=== PATIENT | male | born 1980 | race African-American/Black ===

== ENCOUNTER 2016-10-19 11:00 | Emergency (ER) | payer SELFPAY ==
[~2016-10-19] VITALS: Ht 180.3 cm; Wt 80.0 kg
[~2016-10-19 11:00] MED LIST: AMOX500T PO
[2016-10-19 11:02] VITALS: BP 141/85; PULSE 87; RESP 12; TEMP 98.5; O2SAT 97
--- NOTE | 2016-10-19 11:20 | PD ---
HPI Chief Complaint: Cold / Flu Symptoms Time Seen by Provider: 11:18 Travel History International Travel<30 days: No Contact w/Intl Traveler<30days: No Traveled to known affect area: No History of Present Illness HPI 36-year-old male presents to the emergency department for evaluation of headache , ear pain and sore throat for 3 days. Patient states he has also had some body aches and subjective fevers. Denies hearing loss, lightheadedness, nausea , vomiting, abdominal pain, chest pain, shortness of breath, cough. Patient does smoke cigarettes. Denies any recent travel. Has had positive sick contacts with similar symptoms. Denies any medical conditions. No other complaints. PFSH Past Medical History Diminished Hearing: Yes ([place] BILAT) Musculoskeletal: Yes (DDD) Immunizations Current: Yes Ulcer: Yes Past Surgical History Genitourinary Surgery: Yes (CIRCUMCISION) Other Surgery: Yes (RIGHT HAND) Social History Alcohol Use: Yes (6-7 BEERS PER DAY) Tobacco Use: Yes (1 PPD) Substance Use: Yes (MARIJUANA) Allergies-Medications (Allergen,Severity, Reaction): Coded Allergies: No Known Allergies (Verified , 10/19/16) Reported Meds & Prescriptions Reported Meds & Active Scripts Active Reported Amoxicillin 500 Mg Tab 500 Mg PO TID Review of Systems Except as stated in HPI: all other systems reviewed are Neg Physical Exam Narrative GENERAL: Well-nourished and well-developed pleasant male patient in no acute distress who is nontoxic appearing. SKIN: Warm and dry. HEAD: Normocephalic and atraumatic. EYES: No injection, drainage, or hyphema noted. PERRLA. EOMI. ENT: No nasal drainage noted. Oropharynx is clear and the TMs are normal with good landmarks. NECK: Supple and the trachea is midline. No lymphadenopathy is noted throughout the cervical chains. CARDIOVASCULAR: Regular rate and rhythm. RESPIRATORY: Breath sounds are equal bilaterally with no accessory muscle use, wheezing, rhonchi, or crackles. GASTROINTESTINAL: Abdomen is soft, non-tender, and nondistended. MUSCULOSKELETAL: No obvious deformities, swelling, cyanosis, or ecchymosis is present throughout the upper and lower extremities. Patient has full range of motion without any signs of neurovascular compromise. NEUROLOGICAL: Awake, alert, and oriented. Normal speech and gait. Cranial nerves are grossly intact. Data Data Last Documented VS Vital Signs Date Time Temp Pulse Resp B/P Pulse Ox O2 Delivery O2 Flow Rate FiO2 10/19/16 11:02 98.5 87 12 141/85 97 Room Air MDM Medical Decision Making Medical Screen Exam Complete: Yes Emergency Medical Condition: Yes Differential Diagnosis URI versus viral illness versus influenza versus sinusitis Narrative Course 36-year-old male presents to the emergency department for evaluation of headache , ear pain and sore throat for 3 days. Patient is afebrile, vital signs are stable. Physical examination is unremarkable. Patient appears well overall. This is consistent with a viral URI. Discussed supportive care and when to return to the emergency department. Patient verbalizes understanding and agreement with treatment plan. Diagnosis Primary Impression: Upper respiratory infection Qualified Code: J06.9 - Viral upper respiratory tract infection Referrals: Primary Care Physician Patient Instructions: General Instructions, Upper Respiratory Infection (ED) Departure Forms: Tests/Procedures, Work Release Enter return to work date: Oct 21, 2016 Additional Instructions: Rest. Drink plenty of fluids. Follow-up with your Primary Care Physician. Return to the ED for any acute worsening of symptoms. Med/Other Pt SpecificInfo: No Change to Meds Disposition: 01 DISCHARGE HOME Condition: Stable Shea Hughes Oct 19, 2016 11:19
[2016-10-19] MEDS ORDERED: AMOX500T PO (11:49)
== END 2016-10-19 11:53 | disposition home or self-care (01) ==
LOC: NEPB 11:00
DX: J06.9 Acute upper respiratory infection, unspecified (principal); F17.210 Nicotine dependence, cigarettes, uncomplicated
CPT/HCPCS: 99283

== ENCOUNTER 2016-11-24 15:11 | Emergency (ER) | payer SELFPAY ==
[2016-11-24 15:12] VITALS: BP 131/78; PULSE 81; RESP 14; TEMP 98.1; O2SAT 95
--- NOTE | 2016-11-24 16:38 | PD ---
HPI Chief Complaint: Hip Injury Time Seen by Provider: 16:38 Travel History International Travel<30 days: No Contact w/Intl Traveler<30days: No Traveled to known affect area: No History of Present Illness HPI 36-year-old male presents to the emergency Department with complaint of left hip pain for the last few days. He does not recall any injury. He notes he doesn't fall. Denies heavy lifting or straining. Has never had pain like this before. Pain is worse with certain movements of his left leg, walking and palpation. Denies paresthesias, loss of sensation, decreased range of motion, decreased strength to the affected extremity. Denies low back pain. Denies fever, chills, nausea, vomiting. Has not taken any medications or tried any treatments to alleviate his symptoms. No known allergies. Denies significant past medical history. No other modifying factors or associated signs and symptoms. PFSH Past Medical History Diminished Hearing: Yes ([place] BILAT) Musculoskeletal: Yes (DDD) Immunizations Current: Yes Ulcer: Yes Past Surgical History Genitourinary Surgery: Yes (CIRCUMCISION) Other Surgery: Yes (RIGHT HAND) Social History Alcohol Use: Yes (6-7 BEERS PER DAY) Tobacco Use: Yes (1 PPD) Substance Use: Yes (MARIJUANA) Allergies-Medications (Allergen,Severity, Reaction): Coded Allergies: No Known Allergies (Verified , 11/24/16) Reported Meds & Prescriptions Reported Meds & Active Scripts Active Ibuprofen 800 Mg Tab 800 Mg PO Q6HR PRN Reported Amoxicillin 500 Mg Tab 500 Mg PO TID Review of Systems Except as stated in HPI: all other systems reviewed are Neg Physical Exam Narrative GENERAL: Well-nourished, well-developed [place] male patient, in no acute distress SKIN: Warm and dry. HEAD: Atraumatic. Normocephalic. EYES: Pupils equal and round. No scleral icterus. No injection or drainage. ENT: Mucosa pink and moist. Airway patent. NECK: Trachea midline. CARDIOVASCULAR: Regular rate. RESPIRATORY: No accessory muscle use. GASTROINTESTINAL: Flat. MUSCULOSKELETAL: Left hip with full range of motion; no erythema, edema, ecchymosis; With tenderness on abduction; tenderness on palpation to the left lateral hip; no obvious deformity; no leg length discrepancy. Left lower extremity is supple and non-tense with 2+ pedal pulse and sensory intact and without erythema or edema. NEUROLOGICAL: Awake and alert. Oriented 3. No obvious cranial nerve deficits. Motor grossly within normal limits. Normal speech. PSYCHIATRIC: Appropriate mood and affect; insight and judgment normal. Data Data Last Documented VS Vital Signs Date Time Temp Pulse Resp B/P Pulse Ox O2 Delivery O2 Flow Rate FiO2 11/24/16 16:49 80 18 98 Room Air 11/24/16 15:12 98.1 131/78 Orders Ibuprofen (Motrin) (11/24/16 16:45) Hip, Uni(Ap&Lat) W Ap Pelvis (11/24/16 16:38) MDM Medical Decision Making Medical Screen Exam Complete: Yes Emergency Medical Condition: Yes Medical Record Reviewed: Yes Differential Diagnosis Arthritis, hip fracture, dislocation, hip pain Narrative Course 36-year-old male with left hip pain. Unknown injury. Left hip is with tenderness with abduction. Ibuprofen ordered. Left hip with AP pelvis x-ray ordered. 1740: Left hip with AP pelvis x-ray with no acute findings. Crutches provided for support. Instructed patient to follow up with orthopedic as needed. Ibuprofen prescribed for home. Patient is medically cleared and stable for discharge. Discussed reasons to return to the emergency department. Instructed patient to follow up with primary care provider. Patient agrees with treatment plan. The patients vital signs are stable and the patient is stable for outpatient follow-up and treatment. Patient discharged home, stable and in no acute distress. Diagnosis Primary Impression: Left hip pain Referrals: Orthopedist Primary Care Physician Patient Instructions: Crutch Instructions (ED), General Instructions, Hip Pain (ED) Departure Forms: Tests/Procedures, Work Release Enter return to work date: Nov 27, 2016 Additional Instructions: Ibuprofen or Tylenol as directed and as needed for pain and inflammation Avoid aggravating activity; increased activity as tolerated Follow-up with primary care provider Follow-up with orthopedic as needed Return to the emergency department immediately with worsening of symptoms Med/Other Pt SpecificInfo: Prescription(s) given Scripts Ibuprofen 800 Mg [id number] Mg PO Q6HR PRN (PAIN) #30 TAB Ref 0 Prov:Shea Contreras 11/24/16 Disposition: 01 DISCHARGE HOME Condition: Stable Shea Contreras Nov 24, 2016 16:38
[2016-11-24] MEDS ORDERED: IBUPROFEN 800 MG TAB PO ONE (16:45)
--- NOTE | 2016-11-24 17:26 | RADRPT ---
EXAM DATE/TIME: 11/24/2016 17:05 [facility] COMPARISON: No previous studies available for comparison. INDICATIONS : Left hip pain, no known injury. MEDICAL HISTORY : None. SURGICAL HISTORY : None. ENCOUNTER: Initial ACUITY: 3 days PAIN SCORE: 5/10 LOCATION: Left hip. FINDINGS: Examination of the left hip was performed with AP Pelvis. The primary and secondary trabecular patte rn of the femoral neck is intact. The hip joint is of normal width without significant sclerosis or bony hypertrophy. The acetabulum is grossly intact. CONCLUSION: Unremarkable exam. Favian Del Real MD on November 24, 2016 at 17:24 Board Certified Radiologist. This report was verified electronically.
[2016-11-24] MEDS ORDERED: IBUP800T23 PO (17:42)
== END 2016-11-24 18:30 | disposition home or self-care (01) ==
LOC: NEPB 15:11
DX: M25.552 Pain in left hip (principal); F17.210 Nicotine dependence, cigarettes, uncomplicated
CPT/HCPCS: 73502; 99283; E0113

== ENCOUNTER 2017-06-30 09:17 | Emergency (ER) | payer SELFPAY ==
[~2017-06-30] VITALS: Ht 177.8 cm; Wt 86.3 kg
[~2017-06-30 09:17] MED LIST changes: +IBUP800T23 PO
[2017-06-30 09:19] VITALS: BP 129/70; PULSE 77; RESP 24; TEMP 98.6; O2SAT 96
[2017-06-30] MEDS ORDERED: MELO7.5T4 PO (09:34)
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
[2017-06-30] MEDS ORDERED: methylPREDNISolone SOD SUCC 125 MG/2 ML VIAL IM ONE (09:45)
== END 2017-06-30 10:17 | disposition home or self-care (01) ==
LOC: NEPD 09:17
DX: S39.012A Strain of muscle, fascia and tendon of lower back, initial encounter (principal); X50.9XXA Other and unspecified overexertion or strenuous movements or postures, initial encounter; X37.0XXA Hurricane, initial encounter; Y93.H2 Activity, gardening and landscaping
CPT/HCPCS: 96372; 99284; J2930

== ENCOUNTER 2017-07-14 08:17 | Emergency (ER) | payer SELFPAY ==
[~2017-07-14] VITALS: Ht 180.3 cm; Wt 90.0 kg
[~2017-07-14 08:17] MED LIST changes: -AMOX500T PO; -IBUP800T23 PO; +MELO7.5T4 PO
[2017-07-14 08:18] VITALS: BP 121/80; PULSE 75; RESP 16; TEMP 98.1; O2SAT 97
--- NOTE | 2017-07-14 08:42 | PD ---
HPI Chief Complaint: Medical Clearance Time Seen by Provider: 08:42 Travel History International Travel<30 days: No Contact w/Intl Traveler<30days: No Traveled to known affect area: No History of Present Illness HPI 37-year-old male presents to the emergency Department with complaint of discharge from his penis and the inside of his penis feeling itchy since yesterday. Denies testicular pain, swelling. Denies penile pain. Denies dysuria, urinary frequency. Denies fever, vomiting, abdominal pain. Reports being monogamous with his girlfriend. Says his girlfriend was seen here a few weeks ago and she told him she had a bacterial infection. Otherwise denies known exposure to STD, STI. Has not taken any medications or tried any treatments to alleviate his symptoms. No known allergies. Symptoms are mild in severity. Has no other medical complaints. No other modifying factors or associated signs and symptoms. PFSH Past Medical History Diminished Hearing: Yes ([place] BILAT) Musculoskeletal: Yes (DDD) Immunizations Current: Yes Ulcer: Yes (peptic) Past Surgical History Genitourinary Surgery: Yes (CIRCUMCISION) Other Surgery: Yes (RIGHT HAND) Social History Alcohol Use: Yes (6-7 BEERS PER DAY) Tobacco Use: Yes (1 PPD) Substance Use: Yes (MARIJUANA on occasion) Allergies-Medications (Allergen,Severity, Reaction): Coded Allergies: No Known Allergies (Verified , 07/14/17) Reported Meds & Prescriptions Reported Meds & Active Scripts Active No Active Prescriptions or Reported Medications Review of Systems Except as stated in HPI: all other systems reviewed are Neg Physical Exam Narrative GENERAL: Well-nourished, well-developed black male patient, in no acute distress ; afebrile, nontoxic-appearing SKIN: Warm and dry. HEAD: Atraumatic. Normocephalic. EYES: Pupils equal and round. ENT: Mucosa pink and moist. NECK: Trachea midline. No lymphadenopathy. CARDIOVASCULAR: Regular rate. RESPIRATORY: No accessory muscle use. GASTROINTESTINAL: Abdomen soft and nondisteneded; nontender. Hepatic and splenic margins not palpable. Bowel sounds are active 4 quadrants. GENITOURINARY: Exam done in the presence of a nurse. Circumcised. Testes descended bilaterally without evidence of rotation. No lesions or erythema. Milky white urethral discharge. MUSCULOSKELETAL: No obvious deformities. No clubbing. No cyanosis. No edema. BACK: No CVA tenderness. NEUROLOGICAL: Awake and alert. Oriented 3. No obvious cranial nerve deficits. Motor grossly within normal limits. Normal speech. Moves all extremities. 5/5 strength to all extremities. PSYCHIATRIC: Appropriate mood and affect; insight and judgment normal. Data Data Last Documented VS Vital Signs Date Time Temp Pulse Resp B/P (MAP) Pulse Ox O2 Delivery O2 Flow Rate FiO2 07/14/17 08:18 98.1 75 16 121/80 (94) 97 Room Air Orders Orders Azithromycin Powd Pack (Zithromax Powd P (07/14/17 08:45) Ceftriaxone Inj (Rocephin Inj) (07/14/17 08:45) Lidocaine 1% Inj (50 Ml) (Xylocaine 1% I (07/14/17 08:45) Metronidazole (Flagyl) (07/14/17 08:45) Gc And Chlamydia Pcr (07/14/17 08:51) MDM Medical Decision Making Medical Screen Exam Complete: Yes Emergency Medical Condition: Yes Medical Record Reviewed: Yes Differential Diagnosis Trichomonas, Chlamydia, gonorrhea, urethritis Narrative Course 37-year-old male physical exam consistent with urethritis. Patient is afebrile and nontoxic-appearing. Denies fever, vomiting. I will treat the patient empirically with azithromycin, Rocephin, and Flagyl. Instructed patient to follow up with the [facility] Department or [facility] clinic for further STD screening. Instructed patient to follow up with primary care provider. Patient verbalizes understanding and agreement with treatment plan. Patient is medically cleared and stable for discharge. Discussed reasons to return to the emergency department. Patient agrees with treatment plan. The patients vital signs are stable and the patient is stable for outpatient follow- up and treatment. Patient discharged home, stable and in no acute distress. Diagnosis Primary Impression: Urethritis Referrals: [facility] Primary Care Physician [facility] Dept. Patient Instructions: Chlamydia (ED), General Instructions, Gonorrhea (ED), Nonspecific Urethritis in Men (ED), Trichomoniasis (ED) Additional Instructions: Avoid sexual activity until after you and sexual partner/s have been treated; wait 14 days to resume sexual intercourse Inform all sexual partners within the past 3-6 months that they need to be evaluated and treated Use condoms every time you have sex Follow-up with primary care provider Follow-up with [facility] Follow-up with [facility] Return to the emergency department immediately with worsening of symptoms Med/Other Pt SpecificInfo: No Meds Exist/No RX given Scripts No Active Prescriptions or Reported Meds Disposition: 01 DISCHARGE HOME Condition: Stable Shea Contreras Jul 14, 2017 08:42
[2017-07-14] MEDS ORDERED: cefTRIAXone 250 MG VIAL IM ONE (08:45)
[2017-07-14] MEDS ORDERED: LIDOCAINE HCL 1% 50 ML VIAL IM ONE (08:45)
[2017-07-14] MEDS ORDERED: metroNIDAZOLE 500 MG TAB PO ONE (08:45)
[2017-07-14] MEDS ORDERED: AZITHROMYCIN PWD FOR SUSP 1 GM PACKET PO ONE (08:45)
[2017-07-14 12:39] LABS: CHLAMYDIA PCR DETECTED (NOT DETECT); NEISSERIA PCR DETECTED (NOT DETECT)
== END 2017-07-14 09:29 | disposition home or self-care (01) ==
LOC: NEPK 08:17
DX: N34.2 Other urethritis (principal); F17.200 Nicotine dependence, unspecified, uncomplicated
CPT/HCPCS: 87491; 87591; 96372; 99284; J0696

== ENCOUNTER 2017-12-13 13:01 | Emergency (ER) | payer SELFPAY ==
[2017-12-13] MEDS ORDERED: IOHEXOL 350 MG/ML 10 ML VIAL (for RAD DIAG) IVCONTRAST ONE (13:02)
[2017-12-13 13:43] VITALS: BP 119/78; PULSE 78; RESP 14; TEMP 98.3; O2SAT 96
[2017-12-13 16:15] LABS: AUTOMATED NEUTROPHIL # 2.3 TH/MM3 (1.8-7.7); BASOPHIL % 0.5 % (0.0-2.0); EOSINOPHIL # 0.1 TH/MM3 (0-0.4); EOSINOPHIL % 1.4 % (0.0-4.0); HEMATOCRIT 45.7 % (39.0-51.0); LYMPH % 39.6 % (9.0-44.0); MEAN CELL VOLUME 93.7 FL (80.0-100.0); MEAN CORPUSCULAR HEMOGLOBIN 32.8 PG (27.0-34.0); MEAN CORPUSCULAR HGB CONC 34.9 % (32.0-36.0); MONO % 12.3 % (0.0-8.0); MONOCYTE # 0.6 TH/MM3 (0-0.9); NEUT % 46.2 % (16.0-70.0); PLATELET COUNT 206 TH/MM3 (150-450); RED BLOOD COUNT 4.88 MIL/MM3 (4.50-5.90); RED CELL DISTRIBUTION WIDTH 12.1 % (11.6-17.2)
[2017-12-13 16:23] LABS: BILIRUBIN, URINE NEG (NEG); BLOOD, URINE NEG (NEG); GLUCOSE,URINE NEG (NEG); KETONE, URINE TRACE mg/dL (NEG); NITRITE,URINE NEG (NEG); URINE COLOR LIGHT-YELLOW (YELLW/STRAW); URINE LEUKOCYTE ESTERASE NEG (NEG)
[2017-12-13 16:32] LABS: BICARBONATE 23.6 MEQ/L (21.0-32.0); CALCIUM 9.2 MG/DL (8.5-10.1); CREATININE 1.08 MG/DL (0.60-1.30)
--- NOTE | 2017-12-13 18:30 | PD ---
HPI Chief Complaint: GI Complaint Time Seen by Provider: 18:28 Travel History International Travel<30 days: No Contact w/Intl Traveler<30days: No Traveled to known affect area: No PFSH Past Medical History Diminished Hearing: Yes ([place] BILAT) Musculoskeletal: Yes (DDD) Immunizations Current: Yes Ulcer: Yes (peptic) Past Surgical History Genitourinary Surgery: Yes (CIRCUMCISION) Other Surgery: Yes (RIGHT HAND) Social History Alcohol Use: Yes (6-7 BEERS PER DAY) Tobacco Use: Yes (3/ PPD) Substance Use: Yes (MARIJUANA on occasion) Allergies-Medications (Allergen,Severity, Reaction): Coded Allergies: No Known Allergies (Verified Allergy, Unknown, 12/13/17) Reported Meds & Prescriptions Reported Meds & Active Scripts Active Metamucil Original Texture (Psyllium Hydrophilic Mucilloid) 3.4 Gram/7 Gram Pow 1 Scoop PO TID PRN 30 Days 1 rounded TEASPOON in 8 oz of liquid at the first sign of irregularity. Data Data Last Documented VS Vital Signs Date Time Temp Pulse Resp B/P (MAP) Pulse Ox O2 Delivery O2 Flow Rate FiO2 12/13/17 13:43 98.3 78 14 119/78 (92) 96 Orders Orders Complete Blood Count With Diff (12/13/17 13:45) Basic Metabolic Panel (Bmp) (12/13/17 13:45) Urinalysis - C+S If Indicated (12/13/17 13:45) Iv Access Insert/Monitor (12/13/17 18:47) Ecg Monitoring (12/13/17 18:47) Oximetry (12/13/17 18:47) Sodium Chloride 0.9% Flush (Ns Flush) (12/13/17 19:00) Fleets Enema (Adult) (Fleets Enema (Adul (12/13/17 19:00) Ct Pelvis W Iv Contrast(Rout) (12/13/17 ) Oral Contrast - Adult (12/13/17 18:54) Diatrizoate Liq ( Gastroview Liq) (12/13/17 20:00) Iohexol 350 Inj (Omnipaque 350 Inj) (12/13/17 13:02) Ed Discharge Order (12/13/17 22:31) Labs Laboratory Tests Test 12/13/17 14:44 White Blood Count 5.0 TH/MM3 Red Blood Count 4.88 MIL/MM3 Hemoglobin 16.0 GM/DL Hematocrit 45.7 % Mean Corpuscular Volume 93.7 FL Mean Corpuscular Hemoglobin 32.8 PG Mean Corpuscular Hemoglobin Concent 34.9 % Red Cell Distribution Width 12.1 % Platelet Count 206 TH/MM3 Mean Platelet Volume 8.0 FL Neutrophils (%) (Auto) 46.2 % Lymphocytes (%) (Auto) 39.6 % Monocytes (%) (Auto) 12.3 % Eosinophils (%) (Auto) 1.4 % Basophils (%) (Auto) 0.5 % Neutrophils # (Auto) 2.3 TH/MM3 Lymphocytes # (Auto) 2.0 TH/MM3 Monocytes # (Auto) 0.6 TH/MM3 Eosinophils # (Auto) 0.1 TH/MM3 Basophils # (Auto) 0.0 TH/MM3 CBC Comment DIFF FINAL Differential Comment Urine Color LIGHT-YELLOW Urine Turbidity CLEAR Urine pH 5.0 Urine Specific Council 1.005 Urine Protein NEG mg/dL Urine Glucose (UA) NEG mg/dL Urine Ketones TRACE mg/dL Urine Occult Blood NEG Urine Nitrite NEG Urine Bilirubin NEG Urine Urobilinogen LESS THAN 2.0 MG/DL Urine Leukocyte Esterase NEG Urine RBC LESS THAN 1 /hpf Urine WBC LESS THAN 1 /hpf Microscopic Urinalysis Comment CULT NOT INDICATED Blood Urea Nitrogen 13 MG/DL Creatinine 1.08 MG/DL Random Glucose 110 MG/DL Calcium Level 9.2 MG/DL Sodium Level 136 MEQ/L Potassium Level 3.6 MEQ/L Chloride Level 101 MEQ/L Carbon Dioxide Level 23.6 MEQ/L Anion Gap 11 MEQ/L Estimat Glomerular Filtration Rate 93 ML/MIN [facility] Medical Decision Making Medical Screen Exam Complete: Yes Emergency Medical Condition: Yes Medical Record Reviewed: Yes Scripts Psyllium Powder (Metamucil Original Texture) 3.4 Gram/7 Gram Pow 1 SCOOP PO TID Y for CONSTIPATION for 30 Days, CONTAINER 0 Refills 1 rounded TEASPOON in 8 oz of liquid at the first sign of irregularity. Prov: Mendoza Weeks MD 12/13/17 Shea Contreras Dec 13, 2017 18:30
[2017-12-13] MEDS ORDERED: SOD PHOSPHATE/SOD BIPHOSPHATE (ADULT) ENEMA 133ML RECTAL ONE (19:00)
[2017-12-13] MEDS ORDERED: SODIUM CHLORIDE 0.9% FLUSH 10 ML FLUSH IV FLUSH PRN (19:00)
[2017-12-13] MEDS ORDERED: DIATRIZOATE MEGLUM/DIATRIZOATE SOD 9 ML CUP PO ONE (20:00)
--- NOTE | 2017-12-13 21:44 | PD ---
HPI Chief Complaint: GI Complaint Time Seen by Provider: 18:28 Travel History International Travel<30 days: No Contact w/Intl Traveler<30days: No Traveled to known affect area: No History of Present Illness HPI Patient's 37 years old and describes tenesmus for about 1 month. He reports pain with bowel movements. He reports some blood in the stool, bright red. No fever or nausea or vomiting. No similar prior events. He reports stool has been soft. PFSH Past Medical History Diminished Hearing: Yes (RINCON BILAT) Musculoskeletal: Yes (DDD) Immunizations Current: Yes Ulcer: Yes (peptic) Past Surgical History Genitourinary Surgery: Yes (CIRCUMCISION) Other Surgery: Yes (RIGHT HAND) Social History Alcohol Use: Yes (6-7 BEERS PER DAY) Tobacco Use: Yes (3/4 PPD) Substance Use: Yes (MARIJUANA on occasion) Allergies-Medications (Allergen,Severity, Reaction): Coded Allergies: No Known Allergies (Verified Allergy, Unknown, 12/13/17) Reported Meds & Prescriptions Reported Meds & Active Scripts Active Metamucil Original Texture (Psyllium Hydrophilic Mucilloid) 3.4 Gram/7 Gram Pow 1 Scoop PO TID PRN 30 Days 1 rounded TEASPOON in 8 oz of liquid at the first sign of irregularity. Review of Systems Except as stated in HPI: all other systems reviewed are Neg Physical Exam Narrative GENERAL: 37-year-old male well-nourished well-developed Vital Signs Date Time Temp Pulse Resp B/P (MAP) Pulse Ox O2 Delivery O2 Flow Rate FiO2 12/13/17 13:43 98.3 78 14 119/78 (92) 96 SKIN: Warm and dry. HEAD: Atraumatic. Normocephalic. EYES: Pupils equal and round. No scleral icterus. No injection or drainage. ENT: No nasal bleeding or discharge. Mucous membranes pink and moist. NECK: Trachea midline. No JVD. CARDIOVASCULAR: Regular rate and rhythm. RESPIRATORY: No accessory muscle use. Clear to auscultation. Breath sounds equal bilaterally. GASTROINTESTINAL: Abdomen soft, non-tender, nondistended. Hepatic and splenic margins not palpable. MUSCULOSKELETAL: Extremities without clubbing, cyanosis, or edema. No obvious deformities. NEUROLOGICAL: Awake and alert. No obvious cranial nerve deficits. Motor grossly within normal limits. Five out of 5 muscle strength in the arms and legs. Normal speech. PSYCHIATRIC: Appropriate mood and affect; insight and judgment normal. Data Data Last Documented VS Vital Signs Date Time Temp Pulse Resp B/P (MAP) Pulse Ox O2 Delivery O2 Flow Rate FiO2 12/13/17 13:43 98.3 78 14 119/78 (92) 96 Orders Orders Complete Blood Count With Diff (12/13/17 13:45) Basic Metabolic Panel (Bmp) (12/13/17 13:45) Urinalysis - C+S If Indicated (12/13/17 13:45) Iv Access Insert/Monitor (12/13/17 18:47) Ecg Monitoring (12/13/17 18:47) Oximetry (12/13/17 18:47) Sodium Chloride 0.9% Flush (Ns Flush) (12/13/17 19:00) Fleets Enema (Adult) (Fleets Enema (Adul (12/13/17 19:00) Ct Pelvis W Iv Contrast(Rout) (12/13/17 ) Oral Contrast - Adult (12/13/17 18:54) Diatrizoate Liq ( Gastroview Liq) (12/13/17 20:00) Iohexol 350 Inj (Omnipaque 350 Inj) (12/13/17 13:02) Ed Discharge Order (12/13/17 22:31) Labs Laboratory Tests Test 12/13/17 14:44 White Blood Count 5.0 TH/MM3 Red Blood Count 4.88 MIL/MM3 Hemoglobin 16.0 GM/DL Hematocrit 45.7 % Mean Corpuscular Volume 93.7 FL Mean Corpuscular Hemoglobin 32.8 PG Mean Corpuscular Hemoglobin Concent 34.9 % Red Cell Distribution Width 12.1 % Platelet Count 206 TH/MM3 Mean Platelet Volume 8.0 FL Neutrophils (%) (Auto) 46.2 % Lymphocytes (%) (Auto) 39.6 % Monocytes (%) (Auto) 12.3 % Eosinophils (%) (Auto) 1.4 % Basophils (%) (Auto) 0.5 % Neutrophils # (Auto) 2.3 TH/MM3 Lymphocytes # (Auto) 2.0 TH/MM3 Monocytes # (Auto) 0.6 TH/MM3 Eosinophils # (Auto) 0.1 TH/MM3 Basophils # (Auto) 0.0 TH/MM3 CBC Comment DIFF FINAL Differential Comment Urine Color LIGHT-YELLOW Urine Turbidity CLEAR Urine pH 5.0 Urine Specific Hammond 1.005 Urine Protein NEG mg/dL Urine Glucose (UA) NEG mg/dL Urine Ketones TRACE mg/dL Urine Occult Blood NEG Urine Nitrite NEG Urine Bilirubin NEG Urine Urobilinogen LESS THAN 2.0 MG/DL Urine Leukocyte Esterase NEG Urine RBC LESS THAN 1 /hpf Urine WBC LESS THAN 1 /hpf Microscopic Urinalysis Comment CULT NOT INDICATED Blood Urea Nitrogen 13 MG/DL Creatinine 1.08 MG/DL Random Glucose 110 MG/DL Calcium Level 9.2 MG/DL Sodium Level 136 MEQ/L Potassium Level 3.6 MEQ/L Chloride Level 101 MEQ/L Carbon Dioxide Level 23.6 MEQ/L Anion Gap 11 MEQ/L Estimat Glomerular Filtration Rate 93 ML/MIN MDM Medical Decision Making Medical Screen Exam Complete: Yes Emergency Medical Condition: Yes Medical Record Reviewed: Yes Differential Diagnosis mass, abscess, constipation, hemorrhoids Narrative Course CBC & BMP Diagram 12/13/17 14:44 Calcium Level 9.[address] 12/13/17 0000 Signed Impressions: Service Date/Time: Wednesday, December 13, 2017 21:57 - CONCLUSION: 1. No evidence of rectal mass and no evidence of leak of rectal contrast.. Multiple particles of stool within the rectum and sigmoid. Fermín Roberson MD The patient is resting comfortably and feels better, is alert and in no distress. The patients results and examination findings were discussed. The repeat examination is unremarkable and benign. The history, exam, diagnostic testing, and current condition do not suggest any significant pathology to warrant further testing, continued ED treatment, admission, or surgical evaluation at this point. The vital signs have been stable. The patient does not have uncontrollable pain, intractable vomiting, or other significant symptoms. The patient's condition is stable and appropriate for discharge. The patient will pursue further outpatient evaluation with a primary care physician or other designated or consulting physician as indicated in the discharge instructions. The patient expressed understanding and was agreeable with this plan. Diagnosis Primary Impression: Tenesmus Referrals: Ageuda Dougherty MD 2 days Med/Other Pt SpecificInfo: Prescription(s) given Scripts Psyllium Powder (Metamucil Original Texture) 3.4 Gram/7 Gram Pow 1 SCOOP PO TID Y for CONSTIPATION for 30 Days, CONTAINER 0 Refills 1 rounded TEASPOON in 8 oz of liquid at the first sign of irregularity. Prov: Mendoza Weeks MD 12/13/17 Disposition: 01 DISCHARGE HOME Condition: Stable Mendoza Weeks MD Dec 13, 2017 21:44
--- NOTE | 2017-12-13 22:21 | RADRPT ---
EXAM DATE/TIME: 12/13/2017 21:57 [facility] COMPARISON: No previous studies available for comparison. INDICATIONS : Rectal pain with blood in stool. IV CONTRAST: 95 cc Omnipaque 350 (iohexol) IV ORAL CONTRAST: No oral contrast ingested. RADIATION DOSE: 13.38 CTDIvol (mGy) MEDICAL HISTORY : None SURGICAL HISTORY : ENCOUNTER: Initial ACUITY: 1 month PAIN SCALE: 5/10 LOCATION: pelvis TECHNIQUE: Volumetric scanning of the pelvis was performed. Using automated exposure control and adjustment of t he mA and/or kV according to patient size, radiation dose was kept as low as reasonably achievable to obtain optimal diagnostic quality images. DICOM format image data is available electronically for review and comparison. FINDINGS: The examination is performed with rectal contrast. Several particles of stool are seen within the re ctum. No evidence of extravasation. No thickening of the rectum or sigmoid wall is top normal limit s are free flowing. Urinary bladder margins are smooth. No evidence of deep pelvic or inguinal kelby opathy. The presacral soft tissues are normal in thickness. Osseous structures are grossly intact. No induration of the ischial rectal fossa fat. CONCLUSION: 1. No evidence of rectal mass and no evidence of leak of rectal contrast.. Multiple particles of sto ol within the rectum and sigmoid. Fermín Roberson MD on December 13, 2017 at 22:16 Board Certified Radiologist. This report was verified electronically.
[2017-12-13] MEDS ORDERED: META48.53 PO (22:28)
== END 2017-12-13 23:07 | disposition home or self-care (01) ==
LOC: NEPD 13:01
DX: R19.8 Other specified symptoms and signs involving the digestive system and abdomen (principal); Z72.0 Tobacco use; Z72.89 Other problems related to lifestyle; F12.90 Cannabis use, unspecified, uncomplicated
CPT/HCPCS: 72193; 80048; 81001; 85025; 99284; Q9963; Q9967